=== PATIENT | female | born 1995 | race African-American/Black ===

== ENCOUNTER 2016-09-25 16:47 | Outpatient (CLI) | payer OTHER ==
[~2016-09-25] VITALS: Ht 167.6 cm; Wt 62.2 kg
[2016-09-25 17:20] VITALS: Ht 167.6 cm; Wt 62.2 kg
--- NOTE | 2016-09-25 18:20 | PN ---
Date/Time of Note Date/Time of Note DATE: 09/25/16 TIME: 18:05 OB Subjective Subjective Subjective Triage consult note: This patient is a 21 years old 1 para 0 who was estimated delivery date is November 21, 2016. She is now 31 weeks and 6 days . She came to the OB triage area complaining of abdominal pain, back pain, chest pain coughing and diarrhea for 2 days. In reviewing her past medical history; she is allergic to penicillin no other significant problems in the past She is now taking iron and vitamins on a daily basis. In triage vital signs were basically normal , blood pressure was 102/63, pulse 850 ,respiration 18/min, and her temperature was 98.4. On physical examination her ear nose throat to be normal. however she was complaining of burning in her throat area, no neck vein distention, no thyroid enlargement, no lymph node enlargement, anywhere in the body . Her chest was clear to auscultation and percussion no rales. Heart normal sinus rhythm with no murmur. Abdomen was soft fundus measures about 32 cm heart tone was normal no CVA tenderness. . Her extremities were normal no varicose veins needs jerk reflex normal. Due to lack of contraction to pelvic exam was not performed due to evidence of a viral upper respiratory tract infection patient was advised to be transferred to the emergency room for further evaluation and treatment . DIEGO ACUÑA MD Sep 25, 2016 18:20
== END 2016-09-25 18:00 | disposition home or self-care (01) ==
LOC: L-D 16:47 → OBT 16:47 → L-D 16:48 → OBT 18:00
DX: O26.893 Other specified pregnancy related conditions, third trimester (principal); R10.9 Unspecified abdominal pain; M54.9 Dorsalgia, unspecified; R07.9 Chest pain, unspecified; R05 Cough; R19.7 Diarrhea, unspecified; Z88.0 Allergy status to penicillin; Z3A.31 31 weeks gestation of pregnancy
CPT/HCPCS: G0463

== ENCOUNTER 2016-09-27 16:44 | Emergency (ER) | payer OTHER ==
[~2016-09-27] VITALS: Ht 167.6 cm; Wt 61.0 kg
[2016-09-27 17:12] VITALS: Ht 167.6 cm; Wt 61.0 kg
--- NOTE | 2016-09-27 17:50 | ERD ---
ER Documentation Chief Complaint Date/Time DATE: 09/27/16 TIME: 17:46 Chief Complaint CLEARED FROM OB YESTERDAY - 32 WKS - SORE THROAT; NO APPETITE HPI This patient is a 32 weeks , 21-year-old female presenting to the emergency department for chills and body aches for the past 3 days. The patient was seen in the hospital and evaluated by NEUROLOGY PHYSICIAN department yesterday and it was determined that heart tones were present and appropriate for the age of the fetus and that there was no indication for further workup to check the fetus at that time. Now the patient is presenting because she has body aches which are worsening. The patient was diagnosed by NEUROLOGY PHYSICIAN with the flu and was told to take Tylenol as needed for chills or body aches. The patient denies any fevers, nausea, vomiting, diarrhea, vaginal bleeding, pelvic pain, abdominal or suprapubic cramping, vaginal discharge, chest pain, shortness of breath, or other symptoms at this time. ROS All systems reviewed and are negative except as per history of present illness. Medications Home Meds No Active Prescriptions or Reported Meds Allergies Allergies: Coded Allergies: No Known Allergy (Unverified , 02/15/14) PMhx/Soc History of Surgery: No Hx Respiratory Disorders: Yes (Bronchitis) Hx Cardiac Disorders: No Hx Psychiatric Problems: No Hx Miscellaneous Medical Probl: No Hx Alcohol Use: No Hx Substance Use: No Hx Tobacco Use: No FmHx Noncontributory for chief complaint Physical Exam Vitals Vital Signs Date Time Temp Pulse Resp B/P Pulse Ox O2 Delivery O2 Flow Rate FiO2 09/27/16 17:12 97.9 101 19 112/72 98 Physical Exam INITIAL VITAL SIGNS: Reviewed by me. The patient is afebrile at 97.9F. GENERAL: Alert and interactive. No acute distress. HEAD: Head is normocephalic and atraumatic. EYES: EOMI. No scleral icterus. No conjunctival injection. ENT: Moist mucosa. The throat is slightly erythematous but there is no tonsillar exudate or hypertrophy. There is no uvular shift. NECK: Supple. Full range of motion. RESPIRATORY: Normal respiratory effort. Clear breath sounds bilaterally. No wheezing, rales, or rhonchi. CV: Regular rate and rhythm. Normal S1 S2. No S3 or S4. No murmurs. ABDOMEN: Gravid abdomen. Nontender to palpation. EXTREMITIES: No deformity. SKIN: Warm and dry. NEUROLOGIC: Alert and oriented x 4. Speech is normal. Moves all extremities equally. No motor or sensory deficits noted. Procedures/MDM EMERGENCY DEPARTMENT COURSE / MEDICAL DECISION MAKING: This is a 21-year-old female who comes to the emergency room secondary to complaints of body aches and chills ongoing for 3 days. The primary diagnosis is sore throat. Secondary diagnosis is myalgia. The patient's symptoms because is most likely viral in etiology. Patient was told by NEUROLOGY PHYSICIAN department yesterday she most likely has influenza and she should take Tylenol. I reassured the patient that this was the most likely diagnosis and she states she will take Tylenol for any worsening body aches or chills. The patient is afebrile in the department and her vital signs are all within normal limits. Patient has had no vaginal bleeding or discharge or abdominal or suprapubic cramping. I have low suspicion for ectopic , abruptio placentia, or other emergencies at this time. Discharge: I have discussed the lab results and diagnostic findings with the patient and answered any questions or concerns. The patient was instructed to take Tylenol as directed by the label only as needed for fevers or body aches. The patient was advised to followup with their PMD in 1-2 days and to return to the Emergency Department if there are any new or worsening symptoms. The patient was advised to follow-up closely with her NEUROLOGY PHYSICIAN doctor as scheduled. The patient understood and agreed with the diagnosis, treatment and plan. The patient is stable for discharge at this time. Departure Diagnosis: Primary Impression: Sore throat Additional Impression: Myalgia Condition: Stable Additional Instructions: Follow-up with your primary care physician within 1 week. Return to the emergency department immediately should you have any new or worsening symptoms, uncontrolled fevers, or other unexplained symptoms. Take all medications as directed. NATHANIEL VILLEDA PA-C Sep 27, 2016 17:50
== END 2016-09-27 18:00 | disposition home or self-care (01) ==
LOC: E/R 16:44
DX: O99.513 Diseases of the respiratory system complicating pregnancy, third trimester (principal); J02.9 Acute pharyngitis, unspecified; M79.1 Myalgia; O99.89 Other specified diseases and conditions complicating pregnancy, childbirth and the puerperium; Z3A.32 32 weeks gestation of pregnancy
CPT/HCPCS: 99282

== ENCOUNTER 2019-04-03 16:18 | Outpatient (CLI) | payer OTHER ==
[~2019-04-03] VITALS: Ht 170.2 cm; Wt 64.0 kg
[2019-04-03 16:44] VITALS: Ht 170.2 cm; Wt 64.0 kg
[2019-04-03 16:45] VITALS: BP 92/50; PULSE 76; RESP 20
--- NOTE | 2019-04-04 05:03 | PN ---
Triage Information Date/Time 04/03/19 Reason for visit: lower abdominal pressure sensation Weeks of Gestation 38w6d /Para Diabetes: none Hypertention: none Objective Vital Signs Date Temp Pulse Resp B/P (MAP) Pulse Ox O2 O2 Flow FiO2 Time Delivery Rate 04/03/19 97.7 76 20 92/50 (64) Room Air 16:45 Heart Rate: 140's Contractions: >10 Minutes Apart Exam VE /-2 repeat exam with good interval no change on VE ROM plus neg Results/Medications Results 24 hrs Laboratory Tests Test 04/03/19 16:40 Membranes Rupture NEGATIVE Imaging Results BPP 8/8 FLOR 15.1cm Disposition: Discharge Assessment/Plan A IUP 38w6d NIL P discharge home with routine labor instructions RTH prn and f/u with her OB KENDRA LOWE MD Apr 04, 2019 05:03
== END 2019-04-03 19:30 | disposition home or self-care (01) ==
LOC: OBT 16:18 → L-D 16:20 → OBT 19:30
PROVIDERS: ATTEND Obstetrics & Gynecology
DX: O26.893 Other specified pregnancy related conditions, third trimester (principal); Z3A.38 38 weeks gestation of pregnancy
CPT/HCPCS: 76818; 84112; G0463